=== PATIENT | female | born 1945 | race Caucasian/White ===

== ENCOUNTER 2018-11-22 18:20 | Emergency (ER) | payer MEDICARE, SELFPAY ==
[2018-11-22] VITALS (8 sets, daily range): BP systolic 99–132; BP diastolic 44–79; PULSE 82–90; RESP 14–17; TEMP 36.8; O2SAT 95; BMI 36.4
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
--- NOTE | 2018-11-22 18:44 | EKG12_ITS ---
Test Reason : Blood Pressure : / mmHG Vent. Rate : 087 BPM Atrial Rate : 087 BPM P-R Int : 200 ms QRS Dur : 082 ms QT Int : 376 ms P-R-T Axes : 053 041 065 degrees QTc Int : 452 ms Normal sinus rhythm Normal ECG Confirmed by STEVEN ZULETA, MARIA VICTORIA ([id number]), non linear editor RYAN ELKINS ([id number]) on 11/24/2018 10:49:21 AM Referred By: ISHAN Confirmed By:MARIA VICTORIA HARRIS MD
[2018-11-22 19:06] LABS: Absolute Lymphocyte Count 2.44 X10^3/uL (0.83-4.51); Absolute Neutrophil Count 7.9 X10^3/uL (2.0-7.7); Basophil# 0.06 X10^3/uL; Basophil% 0.5 % (0-1); Eosinophil# 0.23 X10^3/uL; Hematocrit 40.2 % (37-47); Lymphocyte # 2.44 X10^3/ul (4.0); Lymphocyte % 21.5 % (19-41); Mean Corp Hgb Conc 32.3 g/dL (32-36); Mean Corpuscular Hgb 27.4 pg (27.0-32.0); Mean Corpuscular Volume 84.8 fL (81-99); Mean Platelet Vol. 9.2 fl (6.2-12.0); Monocyte# 0.66 X10^3/uL; Monocyte% 5.8 % (0-10); NRBC Flagged by Analyzer 0 % (0-5); Neutrophil # 7.91 X10^3/uL (2.7-7.7); Neutrophil % 69.6 % (47-70); Platelet Count 225 K/mm3 (150-450); RBC Distribution Width CV 14.3 % (11.6-14.6); RBC Distribution Width SD 44.1 fl (35.1-43.9); Red Blood Count 4.74 M/mm3 (4.2-5.4); White Blood Count 11.4 K/mm3 (4.4-11.0)
[2018-11-22 19:21] LABS: Anion Gap 6 (5-15); BUN 17 mg/dL (7-18); BUN/Creat Ratio 11.6 RATIO (10-20); Calcium,Total 9.7 mg/dL (8.5-10.1); Chloride 101 mmol/L (98-107); Creatinine, Serum 1.46 mg/dL (0.55-1.02); EST Glomerular Filtration Rate 38 mL/min (>60); Est Glom Filt Rate - Afr Amer 45 mL/min (>60); Estimated Creatinine Clearance 33.09 ml/min; Glucose 132 mg/dL (74-106); Potassium 4.4 mmol/L (3.5-5.1); Sodium Level 132 mmol/L (136-145)
--- NOTE | 2018-11-22 20:05 | RAD_ITS ---
HISTORY: syncope EXAM: XR Chest 2 Views COMPARISON: None FINDINGS: LINES/DEVICES: None. LUNGS: There are chronic interstitial changes. No pneumothorax. No consolidation or effusion. MEDIASTINUM AND CARDIOVASCULAR STRUCTURES: Cardiac silhouette not enlarged. Central airways and mediastinal contour are unremarkable. Athersclerotic plaque within the aortic arch. BONES AND SOFT TISSUES: Thoracic spondylosis. RAD/Chest PA and Lateral IMPRESSION: Chronic interestitial changes. No radiographic evidence of acute cardiopulmonary disease. at 2024 Reported and signed by: Roque Suarez MD Electronically Signed: Roque Suarez MD at 20:22 EDT Tel , Service support ,
[2018-11-22] MEDS: 0.9% Normal Saline 1,000 ML 999 ML IV (21:16)
[2018-11-22] MEDS: Ondansetron 4 MG/2 ML Vial IV (21:16)
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
--- NOTE | 2018-11-23 00:05 | ED.RN ---
DR FLOR NOTIFIED FAMILY WOULD LIKE TO SPEAK WITH HIM ABOUT BLOOD IN URINE
[2018-11-23 00:51] LABS: Bacteria 0 SEEN /hpf (None Seen); Mucous, Urine 0 SEEN /hpf (<or=2+); Red Blood Cells-Urine 0 SEEN /hpf (0-5)
[2018-11-23 00:54] LABS: Color, Urine Yellow (Yellow); Glucose, Dipstick Normal (Normal); Ketone-Dipstick Negative (Negative); Leukocyte Esterase-Dipstick 25 /ul (Negative); Nitrite-Dipstick Negative (Negative); Occult Blood-Urine 25 /ul (Negative); Protein-Dipstick 15 mg/dl (Negative); Urine Bilirubin Dipstick Negative (Negative); Urine Clarity Clear (Clear); Urine Urobilinogen Normal (Normal)
[2018-11-23 00:56] VITALS: BP 135/63; PULSE 98; RESP 22; O2SAT 94
[2018-11-23 01:01] LABS: Squamous Epithelial Cells - UA 5-10 SEEN /hpf (5-10); White Blood Cells 0-5 SEEN /hpf (0-5)
[2018-11-23 01:43] VITALS: BP 144/57; PULSE 78; RESP 16; TEMP -17.7; TEMP 0; O2SAT 94
--- NOTE | 2018-11-23 01:44 | ED.RN ---
two gowns went home with the pt. because the paper scrubs didnt fit.
== END 2018-11-23 01:44 | disposition home or self-care (01) ==
PROVIDERS: Emergency Provider Emergency Medicine
DX: R55 Syncope and collapse (principal); S00.81XA Abrasion of other part of head, initial encounter; X58.XXXA Exposure to other specified factors, initial encounter; Y93.89 Activity, other specified; Y92.833 Campsite as the place of occurrence of the external cause; I10 Essential (primary) hypertension; E66.9 Obesity, unspecified; Z79.899 Other long term (current) drug therapy
CPT/HCPCS: 70450; 71046; 80048; 81001; 84484; 85025; 93005; 96361; 96374; 99285; J7030; P9612; A4216; J2405